=== PATIENT | female | born 1970 | race Caucasian/White ===

== ENCOUNTER 2017-11-09 14:22 | Emergency (ER) | payer MEDICAID ==
[~2017-11-09] VITALS: Ht 165.1 cm; Wt 91.6 kg
[2017-11-09 14:45] VITALS: BP 112/71; Ht 165.1 cm; Wt 91.6 kg
== END 2017-11-09 15:27 | disposition home or self-care (01) ==
LOC: ED 14:22
DX: J01.10 Acute frontal sinusitis, unspecified (principal); J45.909 Unspecified asthma, uncomplicated; I10 Essential (primary) hypertension
CPT/HCPCS: J1885

== ENCOUNTER 2018-10-15 13:49 | Emergency (ER) | payer MEDICAID ==
[~2018-10-15] VITALS: Ht 165.1 cm; Wt 88.0 kg
[2018-10-15 14:00] VITALS: Ht 165.1 cm; Wt 88.0 kg
[2018-10-15 15:55] VITALS: BP 120/78
== END 2018-10-15 15:55 | disposition home or self-care (01) ==
LOC: ED 13:49
DX: R30.0 Dysuria (principal); J45.909 Unspecified asthma, uncomplicated; I10 Essential (primary) hypertension
CPT/HCPCS: 82962; 87491; 87591; J0696